=== PATIENT | male | born 1990 | race Caucasian/White ===

== ENCOUNTER 2022-09-27 00:51 | Emergency (ER) | payer BC ==
[~2022-09-27] VITALS: Ht 170.2 cm; Wt 61.2 kg
--- NOTE | 2022-09-27 00:55 | NUR ---
Patient to ER bed 02 to gown for evaluation. Side rails up. Report given to ALICE POLLARD.
[2022-09-27 00:56] VITALS: BP_SYST 115
[2022-09-27] MEDS ORDERED: NS 1000 ML IV.SOLN IV ONE (01:00)
--- NOTE | 2022-09-27 01:01 | NUR ---
MD LEONARD AT BEDSIDE EXAMINING PT.
--- NOTE | 2022-09-27 01:02 | NUR ---
ACCUCHECK SHOWED GLUCOSE OUT OF RANGE. MADE AWARE.
[2022-09-27] MEDS ORDERED: VIS25 PO (01:20)
[2022-09-27] MEDS ORDERED: MG T1TAB4 PO (01:20)
[2022-09-27] MEDS ORDERED: ACET325T PO (01:20)
[2022-09-27] MEDS ORDERED: MOM PO (01:20)
[2022-09-27] MEDS ORDERED: TRAZ-250 PO (01:20)
--- NOTE | 2022-09-27 01:21 | NUR ---
MED REC COMPLETED, INFORMATION PROVIDED BY FACILITY PAPERWORK.
--- NOTE | 2022-09-27 01:25 | NUR ---
Jose white in [facility] - 09/27/22 at 0125 by [id number] MD LEONARD AT BEDSIDE EXAMINING PT.
[2022-09-27 01:51] LABS: BASOPHILS # (AUTO) 0.1 K/uL (0.0-0.2); BASOPHILS % (AUTO) 1.6 % (0.0-2.0); EOSINOPHILS # (AUTO) 0.1 K/uL (0.0-0.4); EOSINOPHILS % (AUTO) 2.6 % (0.0-4.0); HEMATOCRIT 39.3 % (36-54); HEMOGLOBIN 13.3 g/dL (14.0-18.0); LYMPHOCYTES # (AUTO) 1.2 K/uL (1.0-5.5); LYMPHOCYTES % (AUTO) 26.6 % (20.5-51.5); MEAN CORPUSCULAR HEMOGLOBIN 33 pg (27-31); MEAN CORPUSCULAR HGB CONC 34 % (32-36); MEAN CORPUSCULAR VOLUME 98 fL (79.0-98.0); MONOCYTES # (AUTO) 0.6 K/uL (0.0-1.0); NEUTROPHILS # (AUTO) 2.6 K/uL (1.8-7.7); NEUTROPHILS % (AUTO) 56.2 % (40.0-70.0); PLATELET COUNT (AUTO) 369 K/uL (130-430); RED CELL DISTRIBUTION WIDTH 13.3 % (9.0-15.0); WHITE BLOOD COUNT (AUTO) 4.6 K/uL (4.8-10.8)
[2022-09-27 02:00] LABS: ALANINE AMINOTRANSFERASE 22 U/L (12-78); ALBUMIN 2.9 g/dL (3.4-4.8); ANION GAP 4 (5-15); ASPARTATE AMINOTRANSFERASE 5 U/L (10-37); CALCIUM 8.9 mg/dL (8.4-11.0); CHLORIDE 95 mmol/L (98-107); CREATININE 1.23 mg/dL (0.55-1.30); TOTAL BILIRUBIN 0.2 mg/dL (0.0-1.0); UREA NITROGEN, BLOOD 15 mg/dL (8-21)
[2022-09-27 02:02] LABS: GFR AFRICAN AMERICAN 87 mL/min (>90)
[2022-09-27 02:03] LABS: GLUCOSE 557 mg/dL (70-99)
[2022-09-27] MEDS ORDERED: INSULIN REGULAR, HUMAN 10 UNITS/0.1 ML, 3 ML VIAL IVP ONE (02:15)
--- NOTE | 2022-09-27 02:53 | NUR ---
BS 315 mg/dL Repored to MD Lei with order to give 6 u Reg Insulin IVP.
--- NOTE | 2022-09-27 04:23 | NUR ---
Patient transferred to [facility]. Is being transferred due to higher level of care. Receiving facility has accepting physician and available space. ER physician has signed transfer form. Patient or responsible democrat has agreed to transfer and signed form. Patient belongings sent with patient. Copy of nursing notes, lab reports, EKG, Physicians Orders and X-rays to be sent with patient. Report called to ALICE Martinez at receiving facility. Receiving physician is Dr Rogel. [facility] ambulance service arrived for transportation and pt report was endorsed to EMT's.
[2022-09-27 04:27] VITALS: BP_SYST 109
== END 2022-09-27 04:26 | disposition short-term general hospital (02) ==
LOC: SED 00:51
DX: E11.65 Type 2 diabetes mellitus with hyperglycemia (principal); F15.10 Other stimulant abuse, uncomplicated; Z79.899 Other long term (current) drug therapy; Z20.822 Contact with and (suspected) exposure to COVID-19
CPT/HCPCS: 99285; 96374; 71045; 96361; 87426; 80053; 82962; 85025; 87081; 87040; 84484; 36415; 93005; 36600; 82803; 83605; J1815; J7030